=== PATIENT | male | born 1975 | race Caucasian/White ===

== ENCOUNTER 2017-11-09 16:35 | Emergency (ER) | payer OTHER ==
--- NOTE | 2017-11-09 17:27 | EDPHY ---
H & P Stated Complaint: started taking lisinporil this am-CP, feeling dizzy, weak, confused Time Seen by Provider: 11/09/17 17:03 HPI/ROS: Chief complaint: Dizziness History of present illness: This is a 42-year-old male who presents to the emergency department for evaluation of dizziness. Patient was recently diagnosed with high blood pressure by his doctor, Dr. Cassy Garcia. He was prescribed lisinopril, 10 mg daily. He took his 1st dose today. Shortly after taking it he was out walking in the sun when he started to become dizzy. He describes a lightheadedness. Symptoms persisted. He developed associated blurry vision and weakness. He went home to rest. During this time he also developed some mild chest pressure and trouble breathing. He states he was feeling anxious and believes the chest discomfort and trouble breathing was secondary to the anxiety. Those symptoms lasted approximately 45 min. He denies other associated signs or symptoms including no headaches, no paresthesias, no paralysis, no trouble with speech. At this time he states he is feeling well. He has no complaints. It has been 5 hours since the onset of symptoms. He has never had similar symptoms. Review of systems: A 10 point review of systems was obtained and other than described above was negative - Medical/Surgical History Hx Asthma: No Hx Chronic Respiratory Disease: No Hx Diabetes: No Hx Cardiac Disease: Yes Hx Renal Disease: No Hx Cirrhosis: No Hx Alcoholism: No Hx HIV/AIDS: No Hx Splenectomy or Spleen Trauma: No Other PMH: HTN - Social History Smoking Status: Never smoked - Physical Exam Exam: General Appearance: Alert, nontoxic. Eyes: Pupils equal and round no pallor or injection. ENT, Mouth: Mucous membranes moist. Respiratory: There are no retractions, lungs are clear to auscultation. Cardiovascular: Regular rate and rhythm. Radial pulses 2+ bilaterally. No carotid bruits. Gastrointestinal: Abdomen is soft and non tender, no masses, bowel sounds normal. Neurological: Alert and oriented x4. Cranial nerves 2-12 grossly intact. Strength and sensation intact and symmetrical. Normal gait. Skin: Warm and dry, no rashes. Musculoskeletal: Neck is supple non tender. Extremities are symmetrical, full range of motion. Psychiatric: Patient is oriented X 3, there is no agitation. Constitutional: Initial Vital Signs Temperature (C) 36.6 C 11/09/17 16:52 Heart Rate 73 11/09/17 16:52 Respiratory Rate 18 11/09/17 16:52 Blood Pressure 126/71 H 11/09/17 16:52 O2 Sat (%) 94 11/09/17 16:52 O2 Delivery Mode Room Air Allergies/Adverse Reactions: No Known Allergies Allergy (Unverified 11/09/17 16:51) Home Medications: Medication Instructions Recorded EPINEPHrine 11/09/17 Lisinopril 11/09/17 Medical Decision Making ED Course/Re-evaluation: Patient was discussed with my primary supervising physician Dr. Tierra Irwin. This is a 42-year-old male who presents to the emergency department for dizziness with subsequent development of chest discomfort and trouble breathing after starting lisinopril. On my evaluation he is nontoxic. Vital signs are stable. Physical exam is benign including a nonfocal neurologic exam and he reports he is asymptomatic. EKG and troponin are unremarkable. While awaiting the CBC and chemistry panel he asked to be discharged. He stated the visit would be too expensive and he wanted to be discharged immediately. He declined a chest x-ray. Likely his dizziness is secondary to starting lisinopril today. He is asked to discontinue the use of lisinopril. He is asked to follow up with his primary care doctor on Saturday for recheck. In addition, strict return precautions were provided. The patient voiced understanding and agreement with plan. Differential Diagnosis: Included but not limited to hypotension secondary to blood pressure medication, hypokalemia, cardiac dysrhythmia, electrolyte disturbances, anxiety, ACS - Data Points Laboratory Results: Laboratory Results 11/09/17 17:25 11/09/17 17:25 11/09/17 11/09/17 11/09/17 17:25 17:25 17:25 WBC 9.99 10^3/uL H 10^3/uL (3.80-9.50) RBC 4.87 10^6/uL 10^6/uL (4.40-6.38) Hgb 15.9 g/dL g/dL (13.7-17.5) Hct 45.6 % % (40.0-51.0) MCV 93.6 fL fL (81.5-99.8) MCH 32.6 pg pg (27.9-34.1) MCHC 34.9 g/dL g/dL (32.4-36.7) RDW 12.3 % % (11.5-15.2) Plt Count 228 10^3/uL 10^3/uL (150-400) MPV 11.0 fL fL (8.7-11.7) Neut % (Auto) 65.1 % % (39.3-74.2) Lymph % (Auto) 24.4 % % (15.0-45.0) [place] % (Auto) 8.6 % % (4.5-13.0) Eos % (Auto) 1.2 % % (0.6-7.6) Baso % (Auto) 0.4 % % (0.3-1.7) Nucleat RBC Rel Count 0.0 % % (0.0-0.2) Absolute Neuts (auto) 6.50 10^3/uL 10^3/uL (1.70-6.50) Absolute Lymphs (auto) 2.44 10^3/uL 10^3/uL (1.00-3.00) Absolute Monos (auto) 0.86 10^3/uL H 10^3/uL (0.30-0.80) Absolute Eos (auto) 0.12 10^3/uL 10^3/uL (0.03-0.40) Absolute Basos (auto) 0.04 10^3/uL 10^3/uL (0.02-0.10) Absolute Nucleated RBC 0.00 10^3/uL 10^3/uL (0-0.01) Immature Gran % 0.3 % % (0.0-1.1) Immature Gran # 0.03 10^3/uL 10^3/uL (0.00-0.10) Sodium 139 mEq/L mEq/L (135-145) Potassium 4.4 mEq/L mEq/L (3.3-5.0) Chloride 102 mEq/L mEq/L (97-110) Carbon Dioxide 28 mEq/l mEq/l (22-31) Anion Gap 9 mEq/L mEq/L (8-16) BUN 18 mg/dL mg/dL (7-23) Creatinine 1.1 mg/dL mg/dL (0.7-1.3) Estimated GFR > 60 Glucose 93 mg/dL mg/dL (70-100) Calcium 10.0 mg/dL mg/dL (8.5-10.4) POC Troponin I 0.00 ng/mL ng/mL (0.00-0.08) Point of Care Test Results: Chemistry 11/09/17 17:25 POC Troponin I 0.00 ng/mL ng/mL (0.00-0.08) Departure - Departure Disposition: Home, Routine, Self-Care Clinical Impression: Dizziness, Shortness of breath Chest pain Qualifiers: Chest pain type: unspecified Qualified Code(s): R07.9 - Chest pain, unspecified Condition: Good Instructions: Chest Pain (ED), Dizziness (ED), Shortness of Breath (ED) Additional Instructions: Please follow-up with your primary care doctor on Saturday for recheck Stop taking the lisinopril You were offered further evaluation including a chest x-ray in the Emergency Department, you declined If symptoms worsen or new symptoms develop return to the emergency room for recheck Referrals: Cassy Garcia MD [Primary Care Provider] - As per Instructions
[2017-11-09 18:02] VITALS: BP 140/86
[2017-11-09 18:03] LABS: PLATELET COUNT 228 10^3/uL (150-400)
--- NOTE | 2017-11-09 21:20 | CPEKG ---
Test Reason : OPEN Blood Pressure : / mmHG Vent. Rate : 065 BPM Atrial Rate : 065 BPM P-R Int : 141 ms QRS Dur : 086 ms QT Int : 392 ms P-R-T Axes : 050 -04 008 degrees QTc Int : 408 ms Sinus rhythm Confirmed by Tierra Irwin ([id number]) on 11/09/2017 9:19:14 PM Referred By: Confirmed By:Tierra Irwin
== END 2017-11-09 18:02 | disposition home or self-care (01) ==
DX: R07.9 Chest pain, unspecified (principal); R42 Dizziness and giddiness; R06.02 Shortness of breath; I10 Essential (primary) hypertension
CPT/HCPCS: 84484-PO